=== PATIENT | female | born 1960 | race American Indian/Alaskan Native ===

== ENCOUNTER → 2017-05-30 | Outpatient (CLI) | payer MEDICARE ==
[~2017-05-30] MED LIST: REGADENOSON 0.4 MG/5 ML SYRINGE ONE
== END | disposition home or self-care (01) ==
LOC: CFH 06:40
PROVIDERS: ATTEND Internal Medicine Cardiovascular Disease
DX: I10 Essential (primary) hypertension (principal); Z95.2 Presence of prosthetic heart valve
CPT/HCPCS: 78452; 93017; 93306; A9502; J2785

== ENCOUNTER → 2017-12-25 | Outpatient (CLI) | payer MEDICARE ==
[~2017-12-25] MED LIST changes: +ACYC-114 PO; +ALBU18HF INH; +DIPH25CA61 PO; +DOXY100T PO; +Duoneb INH; +EPIN0.3P3 IM; +FERR324T5 PO; +HYDR25TA6 PO; +LEVO125C2 PO; +PRED20TA PO; -REGADENOSON 0.4 MG/5 ML SYRINGE ONE; +WARF10TA PO
[2017-12-25 12:18] LABS: BASOPHILS # (AUTO) 0.03 x10^3/uL (0-0.1); BASOPHILS % (AUTO) 0 % (0-1); EOSINOPHILS # (AUTO) 0.41 x10^3/uL (0-0.4); EOSINOPHILS % (AUTO) 5 % (1-7); LYMPHOCYTES # (AUTO) 1.44 x10^3/uL (1-3.4); LYMPHOCYTES % (AUTO) 18 % (22-44); MD NO; MEAN CORPUSCULAR HEMOGLOBIN 30.6 pg (27.0-34.8); MEAN CORPUSCULAR HGB CONC 33.8 g/dL (32.4-35.8); MEAN CORPUSCULAR VOLUME 90.3 fL (80-100); MEAN PLATELET VOLUME 8.8 fL (7.4-10.4); MONOCYTES # (AUTO) 0.52 x10^3/uL (0.2-0.8); MONOCYTES % (AUTO) 7 % (2-9); NEUTROPHILS # (AUTO) 5.54 x10^3/uL (1.8-6.8); NEUTROPHILS % (AUTO) 70 % (42-75); PLATELET COUNT 395 x10^3/uL (130-400); RED BLOOD COUNT 5.02 x10^6/uL (3.82-5.3); RED CELL DISTRIBUTION WIDTH 14.1 % (9.6-15.2)
[2017-12-25 12:26] LABS: INTERNATIONAL NORMALIZED RATIO 1.7 (0.93-1.1)
[2017-12-25 12:30] LABS: ANION GAP 5 mmol/L (5-15); CALCIUM 8.7 mg/dL (8.5-10.1); CHLORIDE 107 mmol/L (98-107)
[2017-12-25 12:33] LABS: ALANINE AMINOTRANSFERASE 23 U/L (12-78); ALKALINE PHOSPHATASE 106 U/L (45-117); BILIRUBIN,TOTAL 0.7 mg/dL (0.2-1.0)
[2017-12-25 12:38] LABS: PROTHROMBIN TIME 17.3 Seconds (9.6-11.5)
[2017-12-25 13:17] LABS: MICROSCOPIC AUTO
[2017-12-25 13:25] LABS: CULTURE INDICATED? YES
== END | disposition home or self-care (01) ==
LOC: STAR 11:19
PROVIDERS: ATTEND Neurological Surgery
DX: Z01.818 Encounter for other preprocedural examination (principal); R94.31 Abnormal electrocardiogram [ECG] [EKG]; G56.21 Lesion of ulnar nerve, right upper limb
CPT/HCPCS: 36415; 71046; 80053; 81001; 85025; 85610; 85730; 87086; 93005

== ENCOUNTER 2017-12-30 06:55 | Day surgery (SDC) | payer MEDICARE ==
[~2017-12-30] VITALS: Ht 160 cm; Wt 66.0 kg
[~2017-12-30 06:55] MED LIST changes: +BUPIVACAINE/PF 0.5% ONE; +THROMBIN 5,000 UNIT VIAL TP ONE
[2017-12-30] MEDS ORDERED: LACTATED RINGERS 1,000 ML IV SCH (07:17)
[2017-12-30 09:10] LABS: INTERNATIONAL NORMALIZED RATIO 1.06 (0.93-1.1); PROTHROMBIN TIME 10.9 Seconds (9.6-11.5)
[2017-12-30] MEDS ORDERED: FENTANYL PF 250 MCG/5ML ONE (09:53)
[2017-12-30] MEDS ORDERED: MIDAZOLAM 1 MG/ML, 2ML ONE (09:53)
[2017-12-30] MEDS: FENTANYL PF 100 MCG/2ML IV PRN ×2 (10:25→11:25)
[2017-12-30] MEDS: OXYcodone 5 MG/5 ML ORAL.SOL UDC PO PRN ×2 (10:25→11:25)
[2017-12-30] MEDS: ACETAMINOPHEN 325 MG TABLET PO PRN ×2 (10:25→11:25)
[2017-12-30] MEDS ORDERED: BUPIVACAINE/PF 0.5% INJ ONE (10:27)
[2017-12-30] MEDS: DIPHENHYDRAMINE 50 MG/ML, 1ML IVPush PRN ×2 (10:35→11:35)
[2017-12-30] MEDS ORDERED: MIDAZOLAM 1 MG/ML, 2ML IV PRN (11:00)
[2017-12-30] MEDS ORDERED: ALBUTEROL SULFATE 2.5 MG/3 ML NPPB PRN (11:00)
[2017-12-30] MEDS ORDERED: EPHEDRINE 50 MG/ML, 1ML IVPush PRN (11:00)
[2017-12-30] MEDS ORDERED: LABETALOL 5MG/ML, 20ML IV PRN (11:00)
[2017-12-30] MEDS ORDERED: HYDROmorphone 1 MG/ML, 1ML IV PRN (11:00)
[2017-12-30] MEDS ORDERED: PROMETHAZINE 25 MG/ML, 1ML IV PRN (11:00)
[2017-12-30] MEDS ORDERED: HYDROcodone/APAP 7.5-325MG/15ML UDC PO PRN (11:00)
[2017-12-30] MEDS ORDERED: hydrALAzine 20 MG/ML, 1ML IV PRN (11:00)
[2017-12-30] MEDS ORDERED: ONDANSETRON 2MG/ML, 2ML IVPush PRN (11:00)
[2017-12-30] MEDS ORDERED: METOPROLOL 1 MG/ML, 5ML IV PRN (11:00)
[2017-12-30] MEDS ORDERED: PROMETHAZINE 12.5 MG SUPP PR PRN (11:00)
[2017-12-30] MEDS ORDERED: DEXAMETHASONE 4 MG/ML, 1ML ONE (11:03)
[2017-12-30] MEDS ORDERED: PROPOFOL 10 MG/ML, 20ML ONE (11:03)
[2017-12-30] MEDS ORDERED: CEFAZOLIN 1,000 MG ONE (11:03)
[2017-12-30] MEDS ORDERED: ONDANSETRON 2MG/ML, 2ML ONE (11:03)
[2017-12-30] MEDS ORDERED: ACETAMINOPHEN 650 MG/20.3 ML UDC ONE (11:24)
[2017-12-30] MEDS ORDERED: OXYcodone 5 MG/5 ML ORAL.SOL UDC ONE (11:24)
[2017-12-30] MEDS ORDERED: FENTANYL PF 100 MCG/2ML ONE (11:24)
[2017-12-30] MEDS ORDERED: DIPHENHYDRAMINE 50 MG/ML, 1ML ONE ×2 (11:32→13:26)
[2017-12-30] MEDS ORDERED: ALBUTEROL/IPRATROPIUM 2.5MG/0.5MG, 3 ML ONE (12:28)
[2017-12-30] MEDS ORDERED: methylPREDNISolone SOD SUCC 125 MG/2 ML ONE (12:57)
[2017-12-30] MEDS ORDERED: methylPREDNISolone SOD SUCC 125 MG/2 ML IVPush SCH (13:00)
[2017-12-30] MEDS: ALBUTEROL/IPRATROPIUM 2.5MG/0.5MG, 3 ML NPPB PRN ×2 (13:00→13:50)
[2017-12-30] MEDS ORDERED: RACEPINEPHRINE INH 2.25%, 0.5ML ONE (13:02)
[2017-12-30] MEDS ORDERED: DEXAMETHASONE 4 MG/ML, 5ML ONE (13:26)
[2017-12-30] MEDS ORDERED: DEXAMETHASONE 4 MG/ML, 1ML IVPush ONE (13:30)
[2017-12-30] MEDS ORDERED: DIPHENHYDRAMINE 50 MG/ML, 1ML IVPush ONE (13:30)
[2017-12-30] MEDS ORDERED: RACEPINEPHRINE INH 2.25%, 0.5ML NPPB ONE ×2 (13:30)
[2017-12-30] MEDS ORDERED: FAMOTIDINE 20 MG/2 ML IVPush ONE (13:30)
[2017-12-30] MEDS ORDERED: ALBUTEROL SULFATE 2.5 MG/3 ML ONE (13:55)
[2017-12-30] MEDS ORDERED: KETOROLAC 30 MG/1 ML ONE (15:55)
== END 2017-12-30 15:45 ==
LOC: OUT 06:55
PROVIDERS: ATTEND Neurological Surgery
DX: G56.21 Lesion of ulnar nerve, right upper limb (principal); D64.9 Anemia, unspecified; G43.909 Migraine, unspecified, not intractable, without status migrainosus; J45.909 Unspecified asthma, uncomplicated; Z87.39 Personal history of other diseases of the musculoskeletal system and connective tissue; E04.9 Nontoxic goiter, unspecified; E89.0 Postprocedural hypothyroidism; Z88.8 Allergy status to other drugs, medicaments and biological substances; Z88.6 Allergy status to analgesic agent; Z88.1 Allergy status to other antibiotic agents; Z91.012 Allergy to eggs; Z88.5 Allergy status to narcotic agent; Z88.0 Allergy status to penicillin; Z91.013 Allergy to seafood; Z79.01 Long term (current) use of anticoagulants
CPT/HCPCS: 36415; 64718; 85610; 85730; 94640; J0690; J1100; J1200; J1885; J2250; J2405; J2704; J2930; J3010; J3490; J7120; J7620; S0028

== ENCOUNTER → 2018-09-18 | Outpatient (CLI) | payer MEDICARE ==
[~2018-09-18] MED LIST changes: -BUPIVACAINE/PF 0.5% ONE; +REGADENOSON 0.4 MG/5 ML SYRINGE ONE; -THROMBIN 5,000 UNIT VIAL TP ONE
== END | disposition home or self-care (01) ==
LOC: CFH 12:28
PROVIDERS: ATTEND Internal Medicine Cardiovascular Disease
DX: I44.7 Left bundle-branch block, unspecified (principal); I06.0 Rheumatic aortic stenosis; I10 Essential (primary) hypertension; R07.89 Other chest pain
CPT/HCPCS: 78452; 93017; A9502; J2785

== ENCOUNTER 2018-10-06 09:35 | Day surgery (SDC) | payer MEDICARE ==
[2018-10-05 10:57] LABS: BASOPHILS # (AUTO) 0.14 x10^3/uL (0-0.1); BASOPHILS % (AUTO) 2 % (0-1); EOSINOPHILS # (AUTO) 0.22 x10^3/uL (0-0.4); EOSINOPHILS % (AUTO) 3 % (1-7); LYMPHOCYTES # (AUTO) 2.74 x10^3/uL (1-3.4); LYMPHOCYTES % (AUTO) 32 % (22-44); MD NO; MEAN CORPUSCULAR HEMOGLOBIN 31.2 pg (27.0-34.8); MEAN CORPUSCULAR HGB CONC 33.1 g/dL (32.4-35.8); MEAN CORPUSCULAR VOLUME 94.3 fL (80-100); MEAN PLATELET VOLUME 8.9 fL (7.4-10.4); MONOCYTES # (AUTO) 0.83 x10^3/uL (0.2-0.8); MONOCYTES % (AUTO) 10 % (2-9); NEUTROPHILS # (AUTO) 4.69 x10^3/uL (1.8-6.8); NEUTROPHILS % (AUTO) 54 % (42-75); PLATELET COUNT 400 x10^3/uL (130-400); RED BLOOD COUNT 4.66 x10^6/uL (3.82-5.3); RED CELL DISTRIBUTION WIDTH 15.2 % (9.6-15.2)
[2018-10-05 11:01] LABS: INTERNATIONAL NORMALIZED RATIO 1.2 (0.93-1.1); PROTHROMBIN TIME 12.6 Seconds (9.6-11.5)
[2018-10-05 11:02] LABS: ALANINE AMINOTRANSFERASE 34 U/L (12-78); ANION GAP 8 mmol/L (5-15); CHLORIDE 105 mmol/L (98-107)
[2018-10-05 11:04] LABS: ALKALINE PHOSPHATASE 84 U/L (45-117); BILIRUBIN,TOTAL 0.7 mg/dL (0.2-1.0); TOTAL PROTEIN 7.7 g/dL (6.4-8.2)
[~2018-10-06] VITALS: Ht 160 cm; Wt 68.2 kg
[~2018-10-06 09:35] MED LIST changes: +CETI10TA18 PO; +ENOX80SY5 SQ; +PRED10TA14 PO; -REGADENOSON 0.4 MG/5 ML SYRINGE ONE
[2018-10-06] MEDS ORDERED: DIPHENHYDRAMINE 50 MG/ML, 1ML IVPush ONE (10:30)
[2018-10-06] MEDS ORDERED: methylPREDNISolone SOD SUCC 125 MG/2 ML IVPush ONE (10:30)
[2018-10-06] MEDS ORDERED: FENTANYL PF 100 MCG/2ML ONE (11:44)
[2018-10-06] MEDS ORDERED: MIDAZOLAM 1 MG/ML, 2ML ONE (11:44)
[2018-10-06] MEDS ORDERED: LIDOCAINE-MPF 1%, 5ML ONE (11:45)
[2018-10-06] MEDS ORDERED: HEPARIN 1,000 UNITS/ML, 10ML ONE (11:45)
[2018-10-06] MEDS ORDERED: VERAPAMIL 2.5 MG/ML, 2ML ONE (11:45)
[2018-10-06] MEDS ORDERED: methylPREDNISolone SOD SUCC 125 MG/2 ML ONE (11:45)
[2018-10-06] MEDS ORDERED: NITROGLYCERIN 5 MG/ML, 10ML ONE (12:10)
[2018-10-06] MEDS ORDERED: SODIUM CHLORIDE 0.9% 1,000 ML IV SCH (12:47)
[2018-10-06] MEDS ORDERED: ENOXAPARIN 30 MG/0.3 ML SQ SCH (13:00)
== END 2018-10-06 14:51 | disposition home or self-care (01) ==
LOC: CACL 09:35
PROVIDERS: ATTEND Internal Medicine Cardiovascular Disease
DX: I20.8 Other forms of angina pectoris (principal); E03.9 Hypothyroidism, unspecified; E78.00 Pure hypercholesterolemia, unspecified; J45.909 Unspecified asthma, uncomplicated; I10 Essential (primary) hypertension; Z79.01 Long term (current) use of anticoagulants; Z95.2 Presence of prosthetic heart valve; Z79.899 Other long term (current) drug therapy; Z88.6 Allergy status to analgesic agent; Z88.1 Allergy status to other antibiotic agents; Z91.040 Latex allergy status; Z88.0 Allergy status to penicillin; Z91.013 Allergy to seafood
CPT/HCPCS: 36415; 80053; 85025; 85610; 85730; 93454; 99156; C1894; J1644; J2250; J2930; J3010; Q9967

== ENCOUNTER → 2019-11-08 | Outpatient (CLI) | payer MEDICARE | END | disposition home or self-care (01) | LOC: CFH 09:44 | PROVIDERS: ATTEND Internal Medicine Cardiovascular Disease | DX: I08.3 Combined rheumatic disorders of mitral, aortic and tricuspid valves (principal) | CPT/HCPCS: 93306 ==

== ENCOUNTER → 2020-08-08 | Outpatient (CLI) | payer MEDICARE ==
[~2020-08-08] MED LIST changes: +REGADENOSON 0.4 MG/5 ML SYRINGE ONE
== END | disposition home or self-care (01) ==
LOC: CFH 07:24
PROVIDERS: ATTEND Internal Medicine Cardiovascular Disease
DX: Z01.810 Encounter for preprocedural cardiovascular examination (principal); I10 Essential (primary) hypertension
CPT/HCPCS: 78452; 93017; A9502; J2785

== ENCOUNTER → 2020-08-25 | Outpatient (CLI) | payer MEDICARE ==
[~2020-08-25] MED LIST changes: +ALBU8.5H8 INH; +ASCO500T93 PO; +CETI10TA76 PO; +CHOL10003 PO; +CITA40TA12 PO; +DUPI300P INJ; +FERR-46 PO; +FLUT1DIS5 IH; +FURO-93 PO; +IPRA3AMP30 INH; +LEVO100T5 PO; +LEVO112T4 PO; +LOSA25TA2 PO; -REGADENOSON 0.4 MG/5 ML SYRINGE ONE; +TOPI50TA35 PO; +b complex PO
== END | disposition home or self-care (01) ==
LOC: STAR 10:38
PROVIDERS: ATTEND Anesthesiology
DX: Z01.812 Encounter for preprocedural laboratory examination (principal); Z20.828 Contact with and (suspected) exposure to other viral communicable diseases
CPT/HCPCS: 36415; 87635